=== PATIENT | female | born 1940 | race Hispanic/Latino ===

== ENCOUNTER 2017-04-26 18:52 | Inpatient (IN) | payer OTHER, MEDICARE ==
[~2017-04-26] VITALS: Ht 152.4 cm; Wt 53.5 kg
[~2017-04-26 18:52] MED LIST: DICY10CA13 PO; DIGO125T87 PO; LORA1TAB3 PO; LORTAB PO; ONDA8TAB11 PO; PANT40TA25 PO; PRAV40TA3 PO; PRED5TAB PO
[2017-04-26] MEDS ORDERED: SODIUM CHLORIDE 0.9% 1000ML 1,000 ML IV ONE (19:28)
[2017-04-26] MEDS ORDERED: ONDANSETRON HCL 4 MG/2 ML VIAL ONE (19:28)
[2017-04-26] MEDS ORDERED: MORPHINE SULFATE 10 MG/ML 1ML SYG ONE (19:30)
[2017-04-26 19:45] LABS: BASOPHILS % (AUTO) 0.5 % (0.0-5.0); EOSINOPHILS % (AUTO) 0.8 % (0.0-8.0); HEMATOCRIT 37.1 % (36-48); LYMPHOCYTES % (AUTO) 29.8 % (21.0-51.0); MEAN CORPUSCULAR HEMOGLOBIN 30.6 pg (27.0-33.0); MEAN CORPUSCULAR HGB CONC 33.7 g/dL (32.0-36.0); MEAN CORPUSCULAR VOLUME 90.6 fL (79-99); MONOCYTES % (AUTO) 6.5 % (3.0-13.0); NEUTROPHILS % (AUTO) 62.4 % (40.0-77.0); PLATELET COUNT (AUTO) 303 K/uL (130-400); RED CELL DISTRIBUTION WIDTH 13.3 % (11.0-15.5); WHITE BLOOD COUNT (AUTO) 13.5 K/uL (4.8-10.8)
[2017-04-26 20:01] LABS: APPEARANCE,URINE Clear (CLEAR); BILIRUBIN,URINE Negative (NEGATIVE); COLOR,URINE Yellow (YELLOW); GLUCOSE, URINE (UA) Negative (NEGATIVE); KETONES,URINE Negative (NEGATIVE); LEUKOCYTE ESTERASE ,URINE Large (NEGATIVE); NITRATE,URINE Positive (NEGATIVE); OCCULT BLOOD,URINE Negative (NEGATIVE); PH,URINE 6.5 (5.0-8.0); PROTEIN,URINE Negative (NEGATIVE); UROBILINOGEN,URINE 0.2 mg/dL (0.2-1.0)
[2017-04-26 20:04] LABS: CREATININE 1.2 mg/dL (0.5-1.5); POTASSIUM 4.1 mmol/L (3.5-5.1)
[2017-04-26 20:08] LABS: ALBUMIN 3.1 g/dL (3.5-5.0); BILIRUBIN,TOTAL 0.3 mg/dL (0.2-1.0); TOTAL PROTEIN, SERUM 6.6 g/dL (6.0-8.3)
[2017-04-26 20:40] LABS: BACTERIA,URINE Many /HPF (None Seen); RBC,URINE 0-1 /HPF (0-1); SQUAMOUS EPITHELIAL CELL,UR None Seen /LPF (0-2)
[2017-04-26] MEDS ORDERED: CEFTRIAXONE SODIUM 1 GM ONE (22:01)
[2017-04-26] MEDS ORDERED: MORPHINE SULFATE 8 MG/ML VIAL ONE (22:03)
[2017-04-26] MEDS ORDERED: LIDOCAINE HCL 2% JELLY 5 ML ONE (22:04)
[2017-04-26] MEDS ORDERED: KETOROLAC TROMETHAMINE 15MG/ML ONE (22:58)
[2017-04-26] MEDS ORDERED: POTASSIUM CHLORIDE 20MEQ/100ML 100 ML IV PRN (23:00)
[2017-04-26] MEDS ORDERED: HYDRALAZINE HCL 20 MG/ML VIAL IV PRN (23:00)
[2017-04-26] MEDS: SODIUM CHLORIDE 0.9% 1000ML 1,000 ML IV SCH (23:00)
[2017-04-26] MEDS ORDERED: POTASSIUM CHLORIDE 10% ELIXIR 20 MEQ/15 ML UDCUP PO PRN (23:00)
[2017-04-26] MEDS ORDERED: POTASSIUM CHLORIDE 20 MEQ ERTAB PO PRN (23:00)
[2017-04-26] MEDS ORDERED: LIDOCAINE HCL-MPF 1% 2ML VIAL IVP PRN (23:00)
[2017-04-26] MEDS ORDERED: PHARMACY COMMUNICATION MISC SCH (23:45)
[2017-04-27] MEDS ORDERED: SODIUM CHLORIDE 0.9% 1000ML 1,000 ML IV ONE (00:43)
[2017-04-27] MEDS ORDERED: ZOSYN 3.375GM+NS 50ML 50 ML IV ONE (00:44)
[2017-04-27] MEDS ORDERED: MORPHINE SULFATE 8 MG/ML VIAL ONE (01:50)
[2017-04-27 04:00] VITALS: BP 135/61
[2017-04-27] MEDS: MORPHINE SULFATE 2 MG/ML 1ML SYG IV PRN ×2 (04:47→09:34)
[2017-04-27] MEDS ORDERED: DULO60CA63 PO (04:58)
[2017-04-27] MEDS ORDERED: ZOSYN 3.375GM+NS 50ML 50 ML IV SCH (05:00)
[2017-04-27] MEDS ORDERED: METO10PO MC (05:02)
[2017-04-27 05:52] LABS: HEMATOCRIT 34.6 % (36-48); MEAN CORPUSCULAR HGB CONC 33.5 g/dL (32.0-36.0); MEAN CORPUSCULAR VOLUME 92.6 fL (79-99); PLATELET COUNT (AUTO) 264 K/uL (130-400); RED BLOOD CELL COUNT(AUTO) 3.73 MIL/uL (4.00-5.50); RED CELL DISTRIBUTION WIDTH 13.2 % (11.0-15.5); WHITE BLOOD COUNT (AUTO) 12.4 K/uL (4.8-10.8)
[2017-04-27 06:00] LABS: CREATININE 1.1 mg/dL (0.5-1.5); POTASSIUM 3.7 mmol/L (3.5-5.1)
[2017-04-27 07:00] VITALS: BP 130/66
[2017-04-27] MEDS ORDERED: FLU VACC QS2017-18 36MOS UP/PF 60 MCG/0.5 ML ML IM SCH (07:00)
[2017-04-27] MEDS: FAMOTIDINE/PF 20 MG/2 ML VIAL IV SCH ×2 (09:20→20:29)
[2017-04-27] MEDS: ZOSYN 3.375GM+NS 50ML 50 ML IV SCH ×3 (09:20→23:35)
[2017-04-27] MEDS: SODIUM CHLORIDE 0.9% 1000ML 1,000 ML IV SCH (09:21)
[2017-04-27] MEDS ORDERED: MORPHINE SULFATE 4 MG/1ML SYG ONE (09:28)
[2017-04-27 11:00] VITALS: BP 149/73
[2017-04-27] MEDS: MEPERIDINE-PF 25 MG/ML SYG IVP PRN ×2 (13:46→20:29)
[2017-04-27] MEDS ORDERED: BISACODYL 10 MG SUPP.RECT RC ONE (14:30)
[2017-04-27] MEDS: LACTATED RINGERS 1000ML 1,000 ML IV SCH ×2 (14:33→20:29)
[2017-04-27 15:52] VITALS: BP 182/86
[2017-04-27] MEDS ORDERED: COMPOUND IV REFRIGERATED 1 EACH IVSOLN MISC PRN (16:45)
[2017-04-27] MEDS: KETOROLAC TROMETHAMINE 15MG/ML IV PRN (17:41)
[2017-04-27] MEDS ORDERED: FAMOTIDINE/PF 20 MG/2 ML VIAL IV SCH (21:00)
[2017-04-27 21:28] VITALS: BP 148/82
[2017-04-28] VITALS (28 sets, daily range): BP systolic 94–156; BP diastolic 56–83
[2017-04-28] MEDS: KETOROLAC TROMETHAMINE 15MG/ML IV PRN ×3 (00:23→14:03)
[2017-04-28] MEDS: SODIUM CHLORIDE 0.9% 1000ML 1,000 ML IV SCH ×3 (00:46→19:00)
[2017-04-28] MEDS: MEPERIDINE-PF 25 MG/ML SYG IVP PRN ×3 (03:15→11:28)
[2017-04-28 05:38] LABS: HEMATOCRIT 34.6 % (36-48); MEAN CORPUSCULAR HEMOGLOBIN 30.7 pg (27.0-33.0); MEAN CORPUSCULAR HGB CONC 33.5 g/dL (32.0-36.0); MEAN CORPUSCULAR VOLUME 91.7 fL (79-99); PLATELET COUNT (AUTO) 275 K/uL (130-400); RED BLOOD CELL COUNT(AUTO) 3.77 MIL/uL (4.00-5.50); RED CELL DISTRIBUTION WIDTH 13.5 % (11.0-15.5); WHITE BLOOD COUNT (AUTO) 10.6 K/uL (4.8-10.8)
[2017-04-28 05:48] LABS: CREATININE 0.9 mg/dL (0.5-1.5); POTASSIUM 3.5 mmol/L (3.5-5.1)
[2017-04-28] MEDS: LACTATED RINGERS 1000ML 1,000 ML IV SCH ×3 (06:30→21:32)
[2017-04-28] MEDS: ZOSYN 3.375GM+NS 50ML 50 ML IV SCH ×2 (08:34→16:05)
[2017-04-28] MEDS: FAMOTIDINE/PF 20 MG/2 ML VIAL IV SCH ×2 (08:34→21:31)
[2017-04-28] MEDS: ENOXAPARIN SODIUM 30 MG/0.3 ML SQ SCH (08:34)
[2017-04-28] MEDS: ONDANSETRON HCL 4 MG/2 ML VIAL IV PRN ×2 (08:42→14:03)
[2017-04-28] MEDS ORDERED: GLYCOPYRROLATE 0.2 MG/ML 5 ML VIAL ONE (15:21)
[2017-04-28] MEDS ORDERED: LIDOCAINE PF 2% 5ML ABBOJECT ONE (15:21)
[2017-04-28] MEDS ORDERED: ONDANSETRON HCL 4 MG/2 ML VIAL ONE (15:21)
[2017-04-28] MEDS ORDERED: DEXAMETHASONE SOD PHOSPHATE 10MG/ML 1ML VIAL ONE (15:21)
[2017-04-28] MEDS ORDERED: SUCCINYLCHOLINE 200MG/10ML SYR ONE (15:21)
[2017-04-28] MEDS ORDERED: MIDAZOLAM HCL 1 MG/ML 2ML VIAL ONE (15:22)
[2017-04-28] MEDS ORDERED: PROPOFOL 10 MG/ML 20ML VIAL IV ONE (15:22)
[2017-04-28] MEDS ORDERED: FENTANYL CITRATE PF 50 MCG/1 ML 2ML VIAL ONE (15:22)
[2017-04-28] MEDS ORDERED: NEOMY SULF/POLYMYXIN B SULFATE 1 ML AMPUL IR ONE (18:01)
[2017-04-28] MEDS ORDERED: MEPERIDINE-PF 25 MG/ML SYG ONE (19:25)
[2017-04-28] MEDS ORDERED: NALOXONE HCL 0.4 MG/1 ML ML IVP PRN (20:30)
[2017-04-28] MEDS ORDERED: MORPHINE SULFATE 10 MG/ML 1ML SYG ONE (22:13)
[2017-04-29] VITALS (7 sets, daily range): BP systolic 120–145; BP diastolic 63–76
[2017-04-29] MEDS: ZOSYN 3.375GM+NS 50ML 50 ML IV SCH ×2 (00:01→10:43)
[2017-04-29] MEDS: MEPERIDINE-PF 25 MG/ML SYG IVP PRN (00:07)
[2017-04-29] MEDS ORDERED: MORPHINE SULFATE 10 MG/ML 1ML SYG ONE (02:54)
[2017-04-29 05:35] LABS: HEMATOCRIT 29.9 % (36-48); PLATELET COUNT (AUTO) 300 K/uL (130-400); RED BLOOD CELL COUNT(AUTO) 3.18 MIL/uL (4.00-5.50); RED CELL DISTRIBUTION WIDTH 13.4 % (11.0-15.5); WHITE BLOOD COUNT (AUTO) 19.4 K/uL (4.8-10.8)
[2017-04-29] MEDS: LACTATED RINGERS 1000ML 1,000 ML IV SCH ×2 (06:11→18:16)
[2017-04-29] MEDS ORDERED: HYDROMORPHONE 1 MG/1 ML AMP ONE (07:05)
[2017-04-29] MEDS: HYDROMORPHONE PCA 10MG/50 ML ( 0.2 MG/ML ) IV PRN (08:20)
[2017-04-29] MEDS: ENOXAPARIN SODIUM 30 MG/0.3 ML SQ SCH (10:11)
[2017-04-29] MEDS: FAMOTIDINE/PF 20 MG/2 ML VIAL IV SCH ×2 (10:11→22:20)
[2017-04-29] MEDS: DIGOXIN 250 MCG/ML 2ML AMP IV SCH (10:12)
[2017-04-29] MEDS: PIPERACILLIN SODIUM/TAZOBACTAM 3.375 GM VIAL IV SCH ×2 (18:16→22:20)
[2017-04-29] MEDS: ONDANSETRON HCL 4 MG/2 ML VIAL IV PRN (22:20)
[2017-04-30] MEDS: LACTATED RINGERS 1000ML 1,000 ML IV SCH ×2 (00:25→13:50)
[2017-04-30 00:45] VITALS: BP 127/64
[2017-04-30 04:25] VITALS: BP 121/54
[2017-04-30 05:23] LABS: MEAN CORPUSCULAR HEMOGLOBIN 30.7 pg (27.0-33.0); MEAN CORPUSCULAR HGB CONC 33.2 g/dL (32.0-36.0); MEAN CORPUSCULAR VOLUME 92.4 fL (79-99); PLATELET COUNT (AUTO) 209 K/uL (130-400); RED BLOOD CELL COUNT(AUTO) 2.24 MIL/uL (4.00-5.50); RED CELL DISTRIBUTION WIDTH 13.3 % (11.0-15.5); WHITE BLOOD COUNT (AUTO) 9.8 K/uL (4.8-10.8)
[2017-04-30 05:32] LABS: HEMATOCRIT 20.7 % (36-48)
[2017-04-30 05:35] LABS: CREATININE 0.7 mg/dL (0.5-1.5); DIGOXIN 0.52 ng/mL (0.50-2.00); POTASSIUM 3.3 mmol/L (3.5-5.1)
[2017-04-30] MEDS: PIPERACILLIN SODIUM/TAZOBACTAM 3.375 GM VIAL IV SCH ×3 (05:35→17:48)
[2017-04-30] MEDS ORDERED: POTASSIUM CHLORIDE 10% ELIXIR 20 MEQ/15 ML UDCUP PO PRN (06:45)
[2017-04-30] MEDS ORDERED: POTASSIUM CHLORIDE 20 MEQ ERTAB PO PRN (06:45)
[2017-04-30 08:14] VITALS: BP 141/70
[2017-04-30] MEDS: ENOXAPARIN SODIUM 30 MG/0.3 ML SQ SCH (09:00)
[2017-04-30] MEDS: FAMOTIDINE/PF 20 MG/2 ML VIAL IV SCH (09:28)
[2017-04-30] MEDS: DIGOXIN 250 MCG/ML 2ML AMP IV SCH (09:28)
[2017-04-30] MEDS ORDERED: SODIUM CHLORIDE 0.9% 500ML 500 ML IV ONE (11:59)
[2017-04-30 12:00] VITALS: BP 138/66
[2017-04-30] MEDS ORDERED: PHARMACY COMMUNICATION MISC SCH (16:00)
[2017-04-30] MEDS: KETOROLAC TROMETHAMINE 15MG/ML IV PRN (17:48)
[2017-04-30] MEDS: HYDROMORPHONE PCA 10MG/50 ML ( 0.2 MG/ML ) IV PRN (18:43)
[2017-04-30 19:00] VITALS: BP 154/69
[2017-04-30] MEDS ORDERED: ACETAMINOPHEN 650 MG SUPPOSITORY RC PRN (20:30)
[2017-04-30 23:53] VITALS: BP 154/68
[2017-05-01] MEDS: FAMOTIDINE/PF 20 MG/2 ML VIAL IV SCH ×3 (00:01→20:52)
[2017-05-01] MEDS: LACTATED RINGERS 1000ML 1,000 ML IV SCH ×3 (03:18→20:52)
[2017-05-01 04:00] VITALS: BP 162/83
[2017-05-01] MEDS: PIPERACILLIN SODIUM/TAZOBACTAM 3.375 GM VIAL IV SCH ×2 (05:47)
[2017-05-01 05:56] LABS: HEMATOCRIT 30.8 % (36-48); MEAN CORPUSCULAR HEMOGLOBIN 31.3 pg (27.0-33.0); MEAN CORPUSCULAR HGB CONC 35.3 g/dL (32.0-36.0); MEAN CORPUSCULAR VOLUME 88.6 fL (79-99); NUCLEATED RED BLOOD CELLS 0.1 % (0.0-0.19); PLATELET COUNT (AUTO) 213 K/uL (130-400); RED BLOOD CELL COUNT(AUTO) 3.48 MIL/uL (4.00-5.50); RED CELL DISTRIBUTION WIDTH 14.1 % (11.0-15.5); WHITE BLOOD COUNT (AUTO) 9.5 K/uL (4.8-10.8)
[2017-05-01 06:12] LABS: CREATININE 0.7 mg/dL (0.5-1.5); POTASSIUM 3.3 mmol/L (3.5-5.1)
[2017-05-01] MEDS: POTASSIUM CHLORIDE 20MEQ/100ML 100 ML IV PRN (07:53)
[2017-05-01] MEDS: LIDOCAINE HCL-MPF 1% 2ML VIAL IVP PRN (07:53)
[2017-05-01 08:00] VITALS: BP 156/88
[2017-05-01] MEDS ORDERED: WATER FOR INJECTION,STERILE 20 ML VIAL IJ SCH (09:30)
[2017-05-01] MEDS: MEROPENEM 1 GM VIAL IVP SCH ×2 (10:09→20:51)
[2017-05-01] MEDS: DIGOXIN 250 MCG/ML 2ML AMP IV SCH (10:17)
[2017-05-01] MEDS: ENOXAPARIN SODIUM 30 MG/0.3 ML SQ SCH (10:17)
[2017-05-01] MEDS ORDERED: LABETALOL 20 MG/4 ML DISP.SYRIN IV PRN (11:45)
[2017-05-01 11:54] VITALS: BP 148/80
[2017-05-01 16:00] VITALS: BP 138/75
[2017-05-01 20:00] VITALS: BP 156/81
[2017-05-02] VITALS (7 sets, daily range): BP systolic 146–164; BP diastolic 61–90
[2017-05-02 04:52] LABS: HEMATOCRIT 33.8 % (36-48); MEAN CORPUSCULAR HEMOGLOBIN 30.3 pg (27.0-33.0); MEAN CORPUSCULAR HGB CONC 34.1 g/dL (32.0-36.0); MEAN CORPUSCULAR VOLUME 88.8 fL (79-99); PLATELET COUNT (AUTO) 252 K/uL (130-400); RED BLOOD CELL COUNT(AUTO) 3.81 MIL/uL (4.00-5.50); RED CELL DISTRIBUTION WIDTH 14.1 % (11.0-15.5)
[2017-05-02 05:04] LABS: CREATININE 0.6 mg/dL (0.5-1.5); POTASSIUM 3.5 mmol/L (3.5-5.1)
[2017-05-02] MEDS: HYDROMORPHONE PCA 10MG/50 ML ( 0.2 MG/ML ) IV PRN (07:58)
[2017-05-02] MEDS: MEROPENEM 1 GM VIAL IVP SCH ×2 (09:49→22:31)
[2017-05-02] MEDS: ENOXAPARIN SODIUM 30 MG/0.3 ML SQ SCH (09:51)
[2017-05-02] MEDS: FAMOTIDINE/PF 20 MG/2 ML VIAL IV SCH ×2 (09:51→22:31)
[2017-05-02] MEDS: DIGOXIN 250 MCG/ML 2ML AMP IV SCH (09:51)
[2017-05-02] MEDS: LACTATED RINGERS 1000ML 1,000 ML IV SCH ×3 (09:57→23:50)
[2017-05-02] MEDS ORDERED: [UNRECOGNIZED DRUG - OTHER] IV SCH (17:15)
[2017-05-02] MEDS ORDERED: M V I IV SCH (17:15)
[2017-05-02] MEDS: LORAZEPAM 2 MG/ML 1 ML VIAL IVP PRN (17:15)
[2017-05-03 04:00] VITALS: BP 160/89
[2017-05-03 04:30] LABS: HEMATOCRIT 36.5 % (36-48); MEAN CORPUSCULAR HEMOGLOBIN 30.1 pg (27.0-33.0); MEAN CORPUSCULAR VOLUME 88.5 fL (79-99); PLATELET COUNT (AUTO) 279 K/uL (130-400); RED BLOOD CELL COUNT(AUTO) 4.13 MIL/uL (4.00-5.50); RED CELL DISTRIBUTION WIDTH 13.7 % (11.0-15.5); WHITE BLOOD COUNT (AUTO) 12.5 K/uL (4.8-10.8)
[2017-05-03 04:49] LABS: CREATININE 0.6 mg/dL (0.5-1.5); POTASSIUM 3.4 mmol/L (3.5-5.1)
[2017-05-03 07:00] VITALS: BP 149/76
[2017-05-03] MEDS ORDERED: WATER FOR INJECTION,STERILE 5 ML VIAL ONE (09:30)
[2017-05-03] MEDS: MEROPENEM 1 GM VIAL IVP SCH ×2 (10:00→21:13)
[2017-05-03] MEDS: ENOXAPARIN SODIUM 30 MG/0.3 ML SQ SCH (10:01)
[2017-05-03] MEDS: FAMOTIDINE/PF 20 MG/2 ML VIAL IV SCH ×2 (10:01→21:13)
[2017-05-03 11:00] VITALS: BP 142/76
[2017-05-03] MEDS ORDERED: DiphenhydrAMINE HCL 50 MG/ML VIAL IV SCH (11:15)
[2017-05-03] MEDS ORDERED: NALOXONE HCL 0.4 MG/1 ML ML IVP PRN ×3 (12:00→13:15)
[2017-05-03] MEDS ORDERED: MORPHINE-NS 50 MG/50 ML 50 ML IV PRN ×3 (12:00→13:15)
[2017-05-03] MEDS ORDERED: PHARMACY COMMUNICATION MISC SCH (12:00)
[2017-05-03] MEDS: METHYLPREDNISOLONE SOD SUCC 125MG/2ML VIAL IVP SCH ×2 (12:59→19:35)
[2017-05-03] MEDS: NYSTATIN 100000 UNIT/ML 5ML UDCUP PO SCH ×3 (13:00→21:13)
[2017-05-03] MEDS: DIGOXIN 250 MCG/ML 2ML AMP IV SCH (13:02)
[2017-05-03] MEDS: ONDANSETRON HCL 4 MG/2 ML VIAL IV PRN (13:10)
[2017-05-03] MEDS: LACTATED RINGERS 1000ML 1,000 ML IV SCH (14:20)
[2017-05-03 16:05] VITALS: BP 131/72
[2017-05-03 20:00] VITALS: BP 127/82
[2017-05-03] MEDS: LIDOCAINE HCL-MPF 1% 2ML VIAL IVP PRN (21:15)
[2017-05-03] MEDS: POTASSIUM CHLORIDE 20MEQ/100ML 100 ML IV PRN (21:15)
[2017-05-04] VITALS: BP 136/75
[2017-05-04] MEDS: METHYLPREDNISOLONE SOD SUCC 125MG/2ML VIAL IVP SCH (02:49)
[2017-05-04] MEDS: LORAZEPAM 2 MG/ML 1 ML VIAL IVP PRN (02:50)
[2017-05-04 04:00] VITALS: BP 132/79
[2017-05-04 04:41] LABS: HEMATOCRIT 36.1 % (36-48); MEAN CORPUSCULAR HEMOGLOBIN 30.4 pg (27.0-33.0); MEAN CORPUSCULAR HGB CONC 34.3 g/dL (32.0-36.0); MEAN CORPUSCULAR VOLUME 88.6 fL (79-99); PLATELET COUNT (AUTO) 308 K/uL (130-400); RED BLOOD CELL COUNT(AUTO) 4.08 MIL/uL (4.00-5.50); RED CELL DISTRIBUTION WIDTH 13.8 % (11.0-15.5); WHITE BLOOD COUNT (AUTO) 10.5 K/uL (4.8-10.8)
[2017-05-04 05:03] LABS: CREATININE 0.8 mg/dL (0.5-1.5); POTASSIUM 4.2 mmol/L (3.5-5.1)
[2017-05-04 07:00] VITALS: BP 150/80
[2017-05-04] MEDS: NYSTATIN 100000 UNIT/ML 5ML UDCUP PO SCH ×5 (09:00→21:00)
[2017-05-04] MEDS ORDERED: WATER FOR INJECTION,STERILE 20 ML VIAL ONE (09:05)
[2017-05-04] MEDS: FLUCONAZOLE 200 MG/NS 100 ML 100 ML IV SCH (09:08)
[2017-05-04] MEDS: FAMOTIDINE/PF 20 MG/2 ML VIAL IV SCH ×2 (09:08→22:33)
[2017-05-04] MEDS: MEROPENEM 1 GM VIAL IVP SCH ×2 (09:09→22:32)
[2017-05-04] MEDS: ENOXAPARIN SODIUM 30 MG/0.3 ML SQ SCH (09:09)
[2017-05-04] MEDS ORDERED: DIGOXIN 125 MCG TABLET PO SCH (10:45)
[2017-05-04 11:00] VITALS: BP 136/74
[2017-05-04] MEDS: [UNRECOGNIZED DRUG - OTHER] IV SCH (11:32)
[2017-05-04] MEDS: M V I IV SCH (11:32)
[2017-05-04] MEDS: MEPERIDINE-PF 25 MG/ML SYG IVP PRN ×3 (12:06→22:58)
[2017-05-04] MEDS: KETOROLAC TROMETHAMINE 15MG/ML IV PRN (14:48)
[2017-05-04 17:00] VITALS: BP 147/81
[2017-05-04 20:00] VITALS: BP 133/83
[2017-05-04] MEDS: DOCUSATE NA 100MG/10ML UDCUP PO SCH (22:32)
[2017-05-05] MEDS: KETOROLAC TROMETHAMINE 15MG/ML IV PRN (02:44)
[2017-05-05 04:00] VITALS: BP 140/93
[2017-05-05 04:02] LABS: HEMATOCRIT 34.2 % (36-48); MEAN CORPUSCULAR HEMOGLOBIN 30.1 pg (27.0-33.0); MEAN CORPUSCULAR HGB CONC 33.9 g/dL (32.0-36.0); MEAN CORPUSCULAR VOLUME 88.6 fL (79-99); PLATELET COUNT (AUTO) 324 K/uL (130-400); RED BLOOD CELL COUNT(AUTO) 3.86 MIL/uL (4.00-5.50); WHITE BLOOD COUNT (AUTO) 15.5 K/uL (4.8-10.8)
[2017-05-05] MEDS: MEPERIDINE-PF 25 MG/ML SYG IVP PRN ×2 (04:04→09:15)
[2017-05-05 04:25] LABS: CREATININE 0.9 mg/dL (0.5-1.5); POTASSIUM 3.4 mmol/L (3.5-5.1)
[2017-05-05] MEDS: POTASSIUM CHLORIDE 20MEQ/100ML 100 ML IV PRN (05:36)
[2017-05-05] MEDS: LIDOCAINE HCL-MPF 1% 2ML VIAL IVP PRN (05:37)
[2017-05-05 08:00] VITALS: BP 136/62
[2017-05-05] MEDS: MEROPENEM 1 GM VIAL IVP SCH ×2 (09:16→20:01)
[2017-05-05] MEDS: ENOXAPARIN SODIUM 30 MG/0.3 ML SQ SCH (09:16)
[2017-05-05] MEDS: FLUCONAZOLE 200 MG/NS 100 ML 100 ML IV SCH (09:17)
[2017-05-05] MEDS: DOCUSATE NA 100MG/10ML UDCUP PO SCH ×2 (09:17→20:02)
[2017-05-05] MEDS: FAMOTIDINE/PF 20 MG/2 ML VIAL IV SCH ×2 (09:17→20:01)
[2017-05-05] MEDS: NYSTATIN 100000 UNIT/ML 5ML UDCUP PO SCH ×2 (09:17→13:00)
[2017-05-05] MEDS: M V I IV SCH (09:57)
[2017-05-05] MEDS: [UNRECOGNIZED DRUG - OTHER] IV SCH (09:57)
[2017-05-05] MEDS ORDERED: IBUPROFEN 400 MG TABLET PO PRN (11:45)
[2017-05-05 12:00] VITALS: BP 135/63
[2017-05-05 16:00] VITALS: BP 153/90
[2017-05-05] MEDS: ACETAMINOPHEN-CODEINE ELIXIR 5 ML UDCUP PO PRN ×2 (16:06→23:37)
[2017-05-05] MEDS: DIGOXIN 125 MCG TABLET PO SCH (16:06)
[2017-05-05 20:00] VITALS: BP 154/82
[2017-05-05 23:59] VITALS: BP 131/90
[2017-05-06 04:00] VITALS: BP 138/92
[2017-05-06 04:53] LABS: HEMATOCRIT 37.4 % (36-48); MEAN CORPUSCULAR HEMOGLOBIN 30.6 pg (27.0-33.0); MEAN CORPUSCULAR HGB CONC 33.7 g/dL (32.0-36.0); MEAN CORPUSCULAR VOLUME 90.5 fL (79-99); PLATELET COUNT (AUTO) 345 K/uL (130-400); RED BLOOD CELL COUNT(AUTO) 4.13 MIL/uL (4.00-5.50); RED CELL DISTRIBUTION WIDTH 14.2 % (11.0-15.5); WHITE BLOOD COUNT (AUTO) 13.5 K/uL (4.8-10.8)
[2017-05-06 04:57] LABS: CREATININE 0.8 mg/dL (0.5-1.5); POTASSIUM 4.2 mmol/L (3.5-5.1)
[2017-05-06 08:00] VITALS: BP 144/95
[2017-05-06] MEDS: ONDANSETRON HCL 4 MG/2 ML VIAL IV PRN (08:45)
[2017-05-06] MEDS: FAMOTIDINE/PF 20 MG/2 ML VIAL IV SCH ×2 (08:46→21:24)
[2017-05-06] MEDS: KETOROLAC TROMETHAMINE 15MG/ML IV PRN (08:47)
[2017-05-06] MEDS: MEROPENEM 1 GM VIAL IVP SCH ×2 (08:48→21:24)
[2017-05-06] MEDS: ENOXAPARIN SODIUM 30 MG/0.3 ML SQ SCH (08:50)
[2017-05-06] MEDS: FLUCONAZOLE 200 MG/NS 100 ML 100 ML IV SCH (08:54)
[2017-05-06] MEDS: DOCUSATE NA 100MG/10ML UDCUP PO SCH ×2 (10:53→21:24)
[2017-05-06 12:00] VITALS: BP 144/81
[2017-05-06] MEDS: METOCLOPRAMIDE 10 MG/2 ML VIAL IVP SCH ×2 (12:48→17:43)
[2017-05-06] MEDS: SIMETHICONE 80 MG TAB.CHEW PO SCH ×3 (12:49→21:24)
[2017-05-06] MEDS: MEPERIDINE-PF 25 MG/ML SYG IVP PRN ×2 (12:55→18:52)
[2017-05-06 16:00] VITALS: BP 131/78
[2017-05-06] MEDS: DIGOXIN 125 MCG TABLET PO SCH (17:48)
[2017-05-06] MEDS ORDERED: ACETAMINOPHEN 325 MG TAB PO PRN (19:15)
[2017-05-06] MEDS ORDERED: TRAMADOL HCL 50 MG TABLET PO PRN ×2 (19:15)
[2017-05-06] MEDS ORDERED: MAGNESIUM HYDROXIDE 30 ML/UDCUP PO ONE (20:00)
[2017-05-06 20:01] VITALS: BP 129/57
[2017-05-06] MEDS ORDERED: BISACODYL 10 MG SUPP.RECT RC ONE (20:30)
[2017-05-06 23:19] VITALS: BP 133/81
[2017-05-07] MEDS: MEPERIDINE-PF 25 MG/ML SYG IVP PRN ×3 (00:43→09:05)
[2017-05-07 04:32] VITALS: BP 127/78
[2017-05-07] MEDS: METOCLOPRAMIDE 10 MG/2 ML VIAL IVP SCH ×3 (06:36→16:50)
[2017-05-07 07:00] VITALS: BP 133/79
[2017-05-07] MEDS: ENOXAPARIN SODIUM 30 MG/0.3 ML SQ SCH (08:47)
[2017-05-07] MEDS: FAMOTIDINE/PF 20 MG/2 ML VIAL IV SCH (08:47)
[2017-05-07] MEDS: SIMETHICONE 80 MG TAB.CHEW PO SCH ×2 (08:47→12:28)
[2017-05-07] MEDS: FLUCONAZOLE 200 MG/NS 100 ML 100 ML IV SCH (08:47)
[2017-05-07] MEDS: DOCUSATE NA 100MG/10ML UDCUP PO SCH (09:00)
[2017-05-07] MEDS ORDERED: PRED5TAB PO (09:54)
[2017-05-07] MEDS: MEROPENEM 1 GM VIAL IVP SCH (10:16)
[2017-05-07 11:00] VITALS: BP 120/78
[2017-05-07] MEDS: DIGOXIN 125 MCG TABLET PO SCH (16:50)
== END 2017-05-07 17:30 | disposition home or self-care (01) | DRG 330 ==
LOC: EDH 18:52 → OBSVTOIN 22:05 → EDHIP 22:05 → 3DH 04-27 03:08
PROVIDERS: ADMIT Family Medicine; ATTEND Family Medicine
PROC: 0DB80ZZ Excision of Small Intestine, Open Approach (ICD-10-PCS; principal; 2017-04-26)
PROC: 0D9670Z Drainage of Stomach with Drainage Device, Via Natural or Artificial Opening (ICD-10-PCS; 2017-04-27)
PROC: 02HV33Z Insertion of Infusion Device into Superior Vena Cava, Percutaneous Approach (ICD-10-PCS; 2017-04-27)
PROC: 30233N1 Transfusion of Nonautologous Red Blood Cells into Peripheral Vein, Percutaneous Approach (ICD-10-PCS; 2017-04-27)
DX: K56.609 Unspecified intestinal obstruction, unspecified as to partial versus complete obstruction (principal); N39.0 Urinary tract infection, site not specified; I48.0 Paroxysmal atrial fibrillation; M06.9 Rheumatoid arthritis, unspecified; I10 Essential (primary) hypertension; K58.9 Irritable bowel syndrome, unspecified; I25.10 Atherosclerotic heart disease of native coronary artery without angina pectoris; K57.30 Diverticulosis of large intestine without perforation or abscess without bleeding; F41.9 Anxiety disorder, unspecified; B96.20 Unspecified Escherichia coli [E. coli] as the cause of diseases classified elsewhere; F17.200 Nicotine dependence, unspecified, uncomplicated; Z90.710 Acquired absence of both cervix and uterus; E05.90 Thyrotoxicosis, unspecified without thyrotoxic crisis or storm; Z90.49 Acquired absence of other specified parts of digestive tract; Z88.8 Allergy status to other drugs, medicaments and biological substances; Z91.041 Radiographic dye allergy status
CPT/HCPCS: 36415; 71045; 74021; 74176; 80048; 80053; 80162; 81001; 82270; 83690; 85025; 85027; 86850; 86900; 86901; 86922; 87088; 87186; 87804; 88307; 93005; A4218; A4344; J0330; J0360; J0696; J1100; J1160; J1170; J1200; J1450; J1650; J1885; J2001; J2060; J2175; J2185; J2250; J2270; J2405; J2543; J2704; J2765; J2930; J3010; J3480; J3490; J7030; J7040; J7120; P9016; Q2038

== ENCOUNTER 2017-06-16 17:42 | Inpatient (IN) | payer OTHER, MEDICARE ==
[~2017-06-16] VITALS: Ht 152.4 cm; Wt 50.1 kg
[~2017-06-16 17:42] MED LIST changes: +DULO60CA63 PO; +METO10PO MC
[2017-06-16] MEDS ORDERED: ONDANSETRON HCL 4 MG/2 ML VIAL ONE ×2 (19:41→23:34)
[2017-06-16] MEDS ORDERED: HYDROMORPHONE HCL 0.5 MG/0.5 ML ML ONE (19:42)
[2017-06-16 19:47] LABS: BASOPHILS % (AUTO) 0.9 % (0.0-5.0); EOSINOPHILS % (AUTO) 0.9 % (0.0-8.0); HEMATOCRIT 34.5 % (36-48); LYMPHOCYTES % (AUTO) 26.9 % (21.0-51.0); MEAN CORPUSCULAR HEMOGLOBIN 31.5 pg (27.0-33.0); MEAN CORPUSCULAR HGB CONC 34.2 g/dL (32.0-36.0); MONOCYTES % (AUTO) 5.3 % (3.0-13.0); PLATELET COUNT (AUTO) 343 K/uL (130-400); RED BLOOD CELL COUNT(AUTO) 3.75 MIL/uL (4.00-5.50); WHITE BLOOD COUNT (AUTO) 10.9 K/uL (4.8-10.8)
[2017-06-16 20:01] LABS: INR 0.97 (0.85-1.15); PARTIAL THROMBOPLASTIN TIME 26.2 SEC (26.3-35.5); PROTHROMBIN TIME 10.2 SEC (9.6-11.6)
[2017-06-16 20:03] LABS: CARBON DIOXIDE 31 mmol/L (21-32); CHLORIDE 105 mmol/L (101-111); GLOMERULAR FILTR. RATE CALC 57 mL/min (>60); GLUCOSE,RANDOM 91 mg/dL (70-105); POTASSIUM 3.6 mmol/L (3.5-5.1); SODIUM SERUM 145 mmol/L (136-145); UREA NITROGEN, BLOOD 8 mg/dL (7-18)
[2017-06-16 20:17] LABS: ALANINE AMINOTRANSFERASE 10 U/L (12-78); AMYLASE 25 U/L (25-115); ASPARTATE AMINOTRANSFERASE 11 U/L (10-37); BILIRUBIN,TOTAL 0.3 mg/dL (0.2-1.0); CREATINE KINASE MB < 0.5 ng/mL (0.5-3.6); CREATINE KINASE, TOTAL 34 U/L (21-232); LIPASE 79 U/L (114-286); TOTAL PROTEIN, SERUM 6.8 g/dL (6.0-8.3)
[2017-06-16 20:54] LABS: APPEARANCE,URINE Clear (CLEAR); BILIRUBIN,URINE Negative (NEGATIVE); COLOR,URINE Yellow (YELLOW); GLUCOSE, URINE (UA) Negative (NEGATIVE); KETONES,URINE Negative (NEGATIVE); LEUKOCYTE ESTERASE ,URINE Trace (NEGATIVE); NITRATE,URINE Negative (NEGATIVE); OCCULT BLOOD,URINE Negative (NEGATIVE); PROTEIN,URINE Negative (NEGATIVE)
[2017-06-16 21:34] LABS: RBC,URINE 0-1 /HPF (0-1)
[2017-06-16 21:35] LABS: BACTERIA,URINE Rare /HPF (None Seen); SQUAMOUS EPITHELIAL CELL,UR Rare /LPF (0-2); WBC,URINE 0-1 /HPF (0-1)
[2017-06-16] MEDS ORDERED: MORPHINE SULFATE 2 MG/ML 1ML SYG ONE (23:34)
[2017-06-17] MEDS ORDERED: SODIUM CHLORIDE 0.9% 1000ML 1,000 ML IV SCH (00:18)
[2017-06-17] MEDS ORDERED: MORPHINE SULFATE 2 MG/ML 1ML SYG IVP PRN (00:30)
[2017-06-17] MEDS ORDERED: ONDANSETRON HCL 4 MG/2 ML VIAL IVP PRN (00:30)
[2017-06-17] MEDS ORDERED: POTASSIUM CHLORIDE 10% ELIXIR 20 MEQ/15 ML UDCUP PO PRN (00:30)
[2017-06-17] MEDS ORDERED: MORPHINE SULFATE 4 MG/1ML SYG IVP PRN (00:30)
[2017-06-17] MEDS ORDERED: HYDRALAZINE HCL 20 MG/ML VIAL IV PRN ×2 (00:30→09:45)
[2017-06-17 02:06] LABS: CREATINE KINASE MB < 0.5 ng/mL (0.5-3.6); CREATINE KINASE, TOTAL 33 U/L (21-232); MYOGLOBIN 19 ng/mL (10-92); TROPONIN I 0.12 ng/mL (0.00-0.06)
[2017-06-17] MEDS ORDERED: ONDANSETRON HCL 4 MG/2 ML VIAL ONE ×2 (05:30→12:39)
[2017-06-17] MEDS ORDERED: MORPHINE SULFATE 2 MG/ML 1ML SYG ONE ×2 (05:30→09:09)
[2017-06-17] MEDS ORDERED: SODIUM CHLORIDE 0.9% 1000ML 1,000 ML IV ONE ×2 (05:33→07:37)
[2017-06-17 07:09] LABS: HEMATOCRIT 32.8 % (36-48); MEAN CORPUSCULAR HEMOGLOBIN 32.6 pg (27.0-33.0); MEAN CORPUSCULAR HGB CONC 35.3 g/dL (32.0-36.0); MEAN CORPUSCULAR VOLUME 92.3 fL (79-99); NUCLEATED RED BLOOD CELLS 0.1 % (0.0-0.19); PLATELET COUNT (AUTO) 335 K/uL (130-400); RED BLOOD CELL COUNT(AUTO) 3.55 MIL/uL (4.00-5.50); RED CELL DISTRIBUTION WIDTH 15.2 % (11.0-15.5)
[2017-06-17 07:25] LABS: CREATININE 0.7 mg/dL (0.5-1.5)
[2017-06-17 07:32] LABS: POTASSIUM 2.7 mmol/L (3.5-5.1)
[2017-06-17] MEDS ORDERED: POTASSIUM CHLORIDE 20MEQ/100ML 100 ML IV ONE ×2 (07:38→10:26)
[2017-06-17] MEDS ORDERED: LIDOCAINE HCL-MPF 1% 2ML VIAL ONE ×2 (07:38→11:56)
[2017-06-17 07:56] LABS: CREATINE KINASE MB < 0.5 ng/mL (0.5-3.6); CREATINE KINASE, TOTAL 26 U/L (21-232); MYOGLOBIN 21 ng/mL (10-92); TROPONIN I 0.13 ng/mL (0.00-0.06)
[2017-06-17] MEDS ORDERED: ACETAMINOPHEN-CODEINE 300/30MG TAB PO PRN ×2 (09:45)
[2017-06-17] MEDS ORDERED: LACTULOSE 20 GM/30 ML UDCUP PO PRN (09:45)
[2017-06-17] MEDS ORDERED: GUAIFENESIN-DM 200/20 MG 10 ML PO PRN (09:45)
[2017-06-17] MEDS ORDERED: PHARMACY COMMUNICATION MISC SCH (09:45)
[2017-06-17] MEDS ORDERED: ACETAMINOPHEN 325 MG TAB PO PRN ×2 (09:45)
[2017-06-17] MEDS ORDERED: MAG HYDROX/AL HYDROX/SIMETH ES 30 ML SUSP UDCUP PO PRN (09:45)
[2017-06-17] MEDS ORDERED: NITROGLYCERIN 0.4 MG SL TAB SL PRN (09:45)
[2017-06-17 10:22] LABS: DIGOXIN 0.74 ng/mL (0.50-2.00); MAGNESIUM 1.7 mg/dL (1.80-2.40)
[2017-06-17] MEDS ORDERED: ENOXAPARIN SODIUM 30 MG/0.3 ML SQ ONE (10:25)
[2017-06-17] MEDS ORDERED: FAMOTIDINE/PF 20 MG/2 ML VIAL IV ONE (10:26)
[2017-06-17] MEDS ORDERED: DIGOXIN 250 MCG/ML 2ML AMP ONE (10:57)
[2017-06-17] MEDS ORDERED: MORPHINE SULFATE 4 MG/1ML SYG ONE (12:39)
[2017-06-17 16:00] VITALS: BP 158/74
[2017-06-17] MEDS: DIGOXIN 250 MCG/ML 2ML AMP IV SCH (16:00)
[2017-06-17] MEDS: ONDANSETRON HCL 4 MG/2 ML VIAL IV PRN (16:20)
[2017-06-17] MEDS ORDERED: DIATR MEGLU/DIATRIZOATE SODIUM 30 ML BOTTLE PR ONE (18:00)
[2017-06-17] MEDS ORDERED: MEPERIDINE HCL/PF 25 MG/ML 1ML VIAL IV PRN (18:30)
[2017-06-17 20:00] VITALS: BP 161/78
[2017-06-17] MEDS ORDERED: ASPI-1197 PO (20:08)
[2017-06-17] MEDS ORDERED: ONDA4TAB9 PO (20:08)
[2017-06-17] MEDS ORDERED: DOCU100C33 PO (20:14)
[2017-06-17] MEDS ORDERED: DIPH1TAB24 PO (20:14)
[2017-06-17] MEDS ORDERED: PRED2.5T PO (20:14)
[2017-06-17] MEDS ORDERED: CLOT15CR62 TP (20:19)
[2017-06-17] MEDS ORDERED: METO10TA3 PO (20:19)
[2017-06-17] MEDS ORDERED: MAGNESIUM SULFATE 1 GM in SODIUM CHLORIDE 0.9% 50 ML IV ONE (21:30)
[2017-06-17] MEDS ORDERED: MEPERIDINE HCL/PF 25 MG/0.5 ML AMPUL ONE (21:37)
[2017-06-17] MEDS: FAMOTIDINE/PF 20 MG/2 ML VIAL IV SCH (21:44)
[2017-06-17 23:00] VITALS: BP 143/74
[2017-06-18] MEDS: POTASSIUM CHLORIDE 20 MEQ in SODIUM CHLORIDE 0.9% 1000ML 1,000 ML IV SCH (01:53)
[2017-06-18] MEDS: MEPERIDINE HCL/PF 25 MG/0.5 ML AMPUL IV PRN ×5 (03:59→20:36)
[2017-06-18 04:06] VITALS: BP 172/92
[2017-06-18 04:20] LABS: CREATININE 0.6 mg/dL (0.5-1.5); HEMATOCRIT 35.2 % (36-48); MAGNESIUM 2.2 mg/dL (1.80-2.40); MEAN CORPUSCULAR HEMOGLOBIN 31.6 pg (27.0-33.0); MEAN CORPUSCULAR HGB CONC 34.3 g/dL (32.0-36.0); MEAN CORPUSCULAR VOLUME 92.2 fL (79-99); PHOSPHORUS 3.8 mg/dL (2.5-4.9); PLATELET COUNT (AUTO) 358 K/uL (130-400); POTASSIUM 3.7 mmol/L (3.5-5.1); RED BLOOD CELL COUNT(AUTO) 3.82 MIL/uL (4.00-5.50); RED CELL DISTRIBUTION WIDTH 15.2 % (11.0-15.5); WHITE BLOOD COUNT (AUTO) 8.7 K/uL (4.8-10.8)
[2017-06-18 04:38] LABS: BAND NEUTROPHILS % (MANUAL) 1 % (0-2); LYMPHOCYTES % (MANUAL) 44 % (22-44); MAN.DIFF COMMENT-IMPRESSION MANUAL DIFFERENTIAL; MONOCYTES % (MANUAL) 6 % (2-9); PLATELET MORPHOLOGY COMMENT ADEQUATE; SEGMENTED NEUTROPHILS % 49 % (40-70)
[2017-06-18] MEDS: ONDANSETRON HCL 4 MG/2 ML VIAL IV PRN ×2 (07:51→16:49)
[2017-06-18] MEDS: FAMOTIDINE/PF 20 MG/2 ML VIAL IV SCH ×2 (07:51→20:35)
[2017-06-18] MEDS: ENOXAPARIN SODIUM 30 MG/0.3 ML SQ SCH (07:52)
[2017-06-18 08:00] VITALS: BP 146/67
[2017-06-18] MEDS ORDERED: DIATR MEGLU/DIATRIZOATE SODIUM 30 ML BOTTLE PR ONE (08:00)
[2017-06-18] MEDS ORDERED: LABETALOL 20 MG/4 ML DISP.SYRIN IV PRN (08:00)
[2017-06-18] MEDS ORDERED: PEG 3350/NA SULF,BICARB,CL/KCL 4000 ML SOLN PO SCH (10:30)
[2017-06-18 11:33] VITALS: BP 152/77
[2017-06-18 15:56] VITALS: BP 156/94
[2017-06-18] MEDS: DIGOXIN 250 MCG/ML 2ML AMP IV SCH (17:10)
[2017-06-18 19:36] VITALS: BP 156/71
[2017-06-18 23:38] VITALS: BP 145/69
[2017-06-19] MEDS: ONDANSETRON HCL 4 MG/2 ML VIAL IV PRN (00:04)
[2017-06-19] MEDS: MEPERIDINE HCL/PF 25 MG/0.5 ML AMPUL IV PRN ×7 (00:04→20:44)
[2017-06-19 03:55] LABS: HEMATOCRIT 32.7 % (36-48); MEAN CORPUSCULAR HEMOGLOBIN 31.9 pg (27.0-33.0); MEAN CORPUSCULAR HGB CONC 34.5 g/dL (32.0-36.0); MEAN CORPUSCULAR VOLUME 92.6 fL (79-99); PLATELET COUNT (AUTO) 328 K/uL (130-400); RED BLOOD CELL COUNT(AUTO) 3.53 MIL/uL (4.00-5.50); RED CELL DISTRIBUTION WIDTH 14.9 % (11.0-15.5); WHITE BLOOD COUNT (AUTO) 9.3 K/uL (4.8-10.8)
[2017-06-19 04:14] LABS: CREATININE 0.7 mg/dL (0.5-1.5); POTASSIUM 3.1 mmol/L (3.5-5.1)
[2017-06-19 04:18] VITALS: BP 135/71
[2017-06-19] MEDS: LIDOCAINE HCL-MPF 1% 2ML VIAL IVP PRN ×2 (06:58→15:51)
[2017-06-19] MEDS: POTASSIUM CHLORIDE 20MEQ/100ML 100 ML IV PRN ×2 (06:58→15:51)
[2017-06-19] MEDS: ENOXAPARIN SODIUM 30 MG/0.3 ML SQ SCH (07:38)
[2017-06-19] MEDS: FAMOTIDINE/PF 20 MG/2 ML VIAL IV SCH ×2 (07:38→20:43)
[2017-06-19 08:00] VITALS: BP 139/65
[2017-06-19 11:25] VITALS: BP 144/74
[2017-06-19] MEDS ORDERED: DIATR MEGLU/DIATRIZOATE SODIUM 30 ML BOTTLE ONE (14:31)
[2017-06-19 16:00] VITALS: BP 150/70
[2017-06-19 19:00] VITALS: BP 141/97
[2017-06-19] MEDS: DIGOXIN 250 MCG/ML 2ML AMP IV SCH (23:02)
[2017-06-20] VITALS (7 sets, daily range): BP systolic 140–154; BP diastolic 59–88
[2017-06-20] MEDS: MEPERIDINE HCL/PF 25 MG/0.5 ML AMPUL IV PRN ×7 (00:16→23:02)
[2017-06-20 03:59] LABS: HEMATOCRIT 33.7 % (36-48); MEAN CORPUSCULAR HGB CONC 34.7 g/dL (32.0-36.0); MEAN CORPUSCULAR VOLUME 92.4 fL (79-99); NUCLEATED RED BLOOD CELLS 0.1 % (0.0-0.19); PLATELET COUNT (AUTO) 334 K/uL (130-400); RED BLOOD CELL COUNT(AUTO) 3.64 MIL/uL (4.00-5.50); RED CELL DISTRIBUTION WIDTH 15.2 % (11.0-15.5); WHITE BLOOD COUNT (AUTO) 7.9 K/uL (4.8-10.8)
[2017-06-20 04:11] LABS: CREATININE 0.8 mg/dL (0.5-1.5); POTASSIUM 3.8 mmol/L (3.5-5.1)
[2017-06-20] MEDS: FAMOTIDINE/PF 20 MG/2 ML VIAL IV SCH ×2 (08:19→20:30)
[2017-06-20] MEDS: ENOXAPARIN SODIUM 30 MG/0.3 ML SQ SCH (08:22)
[2017-06-20] MEDS ORDERED: ONDANSETRON HCL MDV 20ML 2 MG/ML VIAL IVP PRN (11:15)
[2017-06-20] MEDS: POTASSIUM CHLORIDE 20 MEQ in SODIUM CHLORIDE 0.9% 1000ML 1,000 ML IV SCH ×2 (15:34→23:00)
[2017-06-20] MEDS: DIGOXIN 250 MCG/ML 2ML AMP IV SCH (16:00)
[2017-06-20] MEDS: DICYCLOMINE HCL 20 MG TAB PO SCH (20:30)
[2017-06-20] MEDS ORDERED: ATORVASTATIN CALCIUM 10 MG TABLET PO SCH (21:00)
[2017-06-21] MEDS: MEPERIDINE HCL/PF 25 MG/0.5 ML AMPUL IV PRN ×2 (03:01→06:20)
[2017-06-21 03:15] VITALS: BP 145/85
[2017-06-21 03:50] LABS: HEMATOCRIT 34.5 % (36-48); MEAN CORPUSCULAR HEMOGLOBIN 31.7 pg (27.0-33.0); MEAN CORPUSCULAR HGB CONC 34.5 g/dL (32.0-36.0); MEAN CORPUSCULAR VOLUME 91.9 fL (79-99); PLATELET COUNT (AUTO) 325 K/uL (130-400); RED BLOOD CELL COUNT(AUTO) 3.75 MIL/uL (4.00-5.50); RED CELL DISTRIBUTION WIDTH 14.5 % (11.0-15.5); WHITE BLOOD COUNT (AUTO) 8.1 K/uL (4.8-10.8)
[2017-06-21 04:03] LABS: CREATININE 0.8 mg/dL (0.5-1.5); DIGOXIN 0.54 ng/mL (0.50-2.00); POTASSIUM 3.2 mmol/L (3.5-5.1)
[2017-06-21] MEDS: POTASSIUM CHLORIDE 20MEQ/100ML 100 ML IV PRN (05:33)
[2017-06-21] MEDS: LIDOCAINE HCL-MPF 1% 2ML VIAL IVP PRN (05:33)
[2017-06-21] MEDS ORDERED: TRAM50TA2 PO (07:49)
[2017-06-21 08:00] VITALS: BP 142/83
[2017-06-21] MEDS: POTASSIUM CHLORIDE 20 MEQ ERTAB PO PRN ×2 (08:06→09:13)
[2017-06-21] MEDS: DICYCLOMINE HCL 20 MG TAB PO SCH (08:06)
[2017-06-21] MEDS: FAMOTIDINE/PF 20 MG/2 ML VIAL IV SCH (08:07)
[2017-06-21] MEDS: ENOXAPARIN SODIUM 30 MG/0.3 ML SQ SCH (08:07)
[2017-06-21] MEDS ORDERED: ASPIRIN 81MG TAB.CHEW PO SCH (09:00)
[2017-06-21] MEDS ORDERED: PREDNISONE 5 MG TABLET PO SCH ×2 (09:00→17:00)
[2017-06-21] MEDS ORDERED: DIGOXIN 125 MCG TABLET PO SCH (16:00)
[2017-06-21] MEDS ORDERED: DULOXETINE HCL 30 MG CAP PO SCH (17:00)
== END 2017-06-21 10:30 | disposition home or self-care (01) | DRG 389 ==
LOC: EDH 17:42 → EDHIP 21:25 → OBSVTOIN 21:25 → 3BH 06-17 14:39
PROVIDERS: ADMIT Family Medicine; ATTEND Family Medicine
DX: K56.600 Partial intestinal obstruction, unspecified as to cause (principal); E44.0 Moderate protein-calorie malnutrition; I48.0 Paroxysmal atrial fibrillation; I10 Essential (primary) hypertension; K58.9 Irritable bowel syndrome, unspecified; F41.9 Anxiety disorder, unspecified; G89.29 Other chronic pain; M06.9 Rheumatoid arthritis, unspecified; M19.90 Unspecified osteoarthritis, unspecified site; Z72.0 Tobacco use; Z79.891 Long term (current) use of opiate analgesic; Z68.21 Body mass index [BMI] 21.0-21.9, adult; Z88.8 Allergy status to other drugs, medicaments and biological substances; Z91.048 Other nonmedicinal substance allergy status
CPT/HCPCS: 36415; 71045; 74018; 74021; 74176; 74270; 80048; 80053; 80162; 81001; 82150; 82550; 82553; 83690; 83735; 83874; 84100; 84484; 85025; 85027; 85610; 85730; 93005; J0360; J1160; J1170; J1650; J2175; J2270; J2405; J3475; J3480; J3490; J7030; Q9963